=== PATIENT | male | born 2000 | race Caucasian/White ===

== ENCOUNTER → 2020-11-03 | Outpatient (CLI) | payer OTHER ==
[~2020-11-03] MED LIST: ISOVUE-300 61% 50ML VIAL As Ordered ONE; PROHANCE 279.3MG/ML 5ML VIAL As Ordered ONE
--- NOTE | 2020-11-03 11:12 | REP ---
INDICATION: LT SHOULDER PAIN. COMPARISON: None. TECHNIQUE: Coronal oblique T1, T2 fat sat, sagittal oblique T2 fat sat, axial T2 fat sat, gradient echo. Post arthrogram T1 fat sat and T2 fat sat in multiple planes. FINDINGS: Rotator cuff: No evidence of tear. Acromioclavicular joint: Unremarkable. Acromion: Type 1 Biceps Tendon: Biceps tendon is not seen in the bicipital groove, status post tenodesis. 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 Deltoid muscle: No abnormal signal. Labrum: The anterior labrum demonstrates linear signal likely from prior tear, with 2 surgical anchors at that location. There is fraying of the anterior inferior labrum. Cartilage: There is moderate, somewhat irregular cartilaginous thinning of the glenoid anteriorly and inferiorly. Bone marrow: Several subcentimeter subcortical cysts are seen in the humeral head. Joint fluid: No effusion. IMPRESSION: The anterior labrum demonstrates linear signal likely from a prior tear with 2 surgical anchors at that location. There is diffuse fraying of the anterior inferior labrum. There is also adjacent moderate cartilaginous thinning of the glenoid in this region. <Electronically signed by John Dominguez > 11/03/20 [id number]
--- NOTE | 2020-11-03 16:55 | REP ---
INDICATION: LT SHOULDER PAIN COMPARISON: None. TECHNIQUE: The procedure was performed under the direct supervision of Dr. Dominguez. The benefits and risks including but not limited to pain, infection, bleeding and anaphylaxis were explained to the patient and informed consent was obtained. The left glenohumeral joint space was localized using fluoroscopic guidance. The skin was prepped and draped in a sterile fashion. 1% lidocaine was used as a local anesthetic. Using fluoroscopic guidance a 22 gauge spinal needle was inserted and advanced into the joint. 0.5 ml of Isovue-300 was injected to verify placement. 11 ml of a solution containing 20 ml of sterile saline and 0.15 ml of ProHance was injected into the joint. The needle was removed and the patient was taken to MRI for postprocedural imaging. The patient tolerated the procedure well and there were no immediate complications. Less than 6 seconds of fluoro time was utilized for this procedure. FINDINGS: None IMPRESSION: Fluoro guidance for left shoulder MRI arthrogram injection. <Electronically signed by Miguel Ángel Carroll > 11/03/20 1645 <Electronically signed by John Domingeuz > 11/03/20 [id number]
== END ==
LOC: M RADPRO 06:35
DX: M25.512 Pain in left shoulder (principal); Z98.890 Other specified postprocedural states
CPT/HCPCS: 23350; 73223; 77002; A9576; Q9967